=== PATIENT | female | born 1965 | race Caucasian/White ===

== ENCOUNTER 2018-01-22 07:00 | Day surgery (SDC) | payer OTHER ==
[~2018-01-22] VITALS: Ht 172.7 cm; Wt 85.3 kg
[~2018-01-22 07:00] MED LIST: COZAAR25 MG PO; LEVOXYL50 MCG PO; MEGESTROL ACETA40 MG PO; NORVASC5 MG PO
== END 2018-01-23 08:00 | disposition home or self-care (01) ==
LOC: CIR.AMB 07:00 → OB/GYN 01-23 09:50 → O/R 01-23 09:50
DX: D25.1 Intramural leiomyoma of uterus (principal); N80.0 Endometriosis of uterus; N84.0 Polyp of corpus uteri